=== PATIENT | male | born 2000 | race Caucasian/White ===

== ENCOUNTER 2022-05-18 09:58 | Emergency (ER) | payer OTHER ==
[~2022-05-18] VITALS: Ht 177.8 cm; Wt 122.7 kg
[~2022-05-18 09:58] MED LIST: NOCURR
[2022-05-18 10:27] LABS: COVID AG,FIA SOURCE NASOPHARYNGEAL
[2022-05-18 10:57] LABS: INFLUENZA TYPE A NEGATIVE FOR TYPE A (NEGATIVE); INFLUENZA TYPE B NEGATIVE FOR TYPE B (NEGATIVE)
[2022-05-18 12:31] VITALS: BP 140/80
== END 2022-05-18 12:32 | disposition home or self-care (01) ==
LOC: EMS 10:07
DX: U07.1 COVID-19 (principal); Z98.890 Other specified postprocedural states
CPT/HCPCS: 87804; 99283

== ENCOUNTER 2023-09-22 20:24 | Emergency (ER) | payer OTHER ==
[~2023-09-22] VITALS: Ht 175.3 cm; Wt 142.2 kg
[2023-09-22 20:25] VITALS: BP 148/82; PULSE 85; RESP 16; TEMP 98.5
[2023-09-22 20:38] LABS: COVID AG,FIA SOURCE NASAL SWAB
[2023-09-22 21:17] LABS: SARS-COV2 (COVID) ANTIGEN,FIA Negative (Negative)
[2023-09-22 21:19] LABS: INFLUENZA TYPE A NEGATIVE FOR TYPE A (NEGATIVE); INFLUENZA TYPE B NEGATIVE FOR TYPE B (NEGATIVE)
[2023-09-22] MEDS ORDERED: BENZ-227 PO (23:15)
== END 2023-09-22 23:30 | disposition home or self-care (01) ==
LOC: EMS 20:31
DX: J06.9 Acute upper respiratory infection, unspecified (principal); Z20.822 Contact with and (suspected) exposure to COVID-19
CPT/HCPCS: 87804; 99283